=== PATIENT | male | born 1985 | race Caucasian/White ===

== ENCOUNTER 2023-03-19 05:05 | Inpatient (IN) | payer OTHER ==
[~2023-03-19] VITALS: Ht 193 cm; Wt 79.0 kg
[2023-03-19] MEDS ORDERED: ISOVUE-370 76% 100ML VIAL As Ordered ONE (05:19)
[2023-03-19] MEDS ORDERED: ONDANSETRON 4MG 2ML VIAL IV ONE (05:20)
[2023-03-19] MEDS ORDERED: NS 1,000 ML IV ONE (05:20)
[2023-03-19] MEDS: MORPHINE 4 MG/ML 1ML VIAL IV PRN ×4 (05:24→15:00)
[2023-03-19 05:28] LABS: VENOUS BASE EXCESS -0.1 (-2.0-2.0); VENOUS HCO3 23.9 MMOL/L (23.0-27.0); VENOUS O2 SATURATION 75.1 % (60.0-80.0); VENOUS PARTIAL PRESSURE CO2 37.4 mmHg (38.0-50.0); VENOUS PARTIAL PRESSURE O2 40.4 mmHg (30.0-50.0); VENOUS PH 7.424 UNITS (7.330-7.430); VENOUS STANDARD HCO3 23.8 MMOL/L; VENOUS TOTAL CO2 25.1 MMOL/L (24.0-28.0)
[2023-03-19 05:40] LABS: BASO # 0.1 10^3/uL (0.0-0.2); BASO % 0.5 % (0.0-1.0); EOS # 0.1 10^3/uL (0.0-0.5); EOS % 0.3 % (0.0-3.0); HEMATOCRIT 41.6 % (42.0-52.0); HEMOGLOBIN 14.6 g/dl (13.5-17.5); LYMPH # 1.3 10^3/uL (1.5-5.0); LYMPH % 7.6 % (24.0-44.0); MEAN CORPUSCULAR HGB CONC 35.1 g/dl (32.0-36.5); MEAN CORPUSCULAR VOLUME 94.1 fl (80.0-96.0); MONO % 5.8 % (2.0-8.0); NEUTROPHILS # 14.2 10^3/uL (1.5-8.5); NEUTROPHILS % 85.4 % (36.0-66.0); PLATELET COUNT, AUTOMATED 231 10^3/uL (150-450); RED BLOOD COUNT 4.42 10^6/uL (4.30-6.10); WHITE BLOOD COUNT 16.6 10^3/uL (4.0-10.0)
[2023-03-19 05:51] LABS: INR 0.93; PROTHROMBIN TIME 12.7 SECONDS (12.5-14.5)
[2023-03-19 05:52] LABS: PARTIAL THROMBOPLASTIN TIME 25.8 SECONDS (24.8-34.2)
[2023-03-19 05:56] LABS: ETHYL ALCOHOL (ETHANOL) 0.184 % (0.000-0.010); LIPASE 25 U/L (12-53)
[2023-03-19 05:57] LABS: AMYLASE 51 U/L (30-118)
[2023-03-19 05:58] LABS: ALBUMIN 4.2 G/DL (3.2-5.2); ALKALINE PHOSPHATASE 60 U/L (46-116); ALT/SGPT 42 U/L (7.0-40); AST/SGOT 60 U/L (<34); BILIRUBIN,DIRECT 0.2 MG/DL (<0.4); BILIRUBIN,TOTAL 0.7 MG/DL (0.3-1.2); BLOOD UREA NITROGEN 9 MG/DL (9-23); CALCIUM LEVEL 10.4 MG/DL (8.5-10.1); CARBON DIOXIDE LEVEL 25 MMOL/L (20-31); CHLORIDE LEVEL 106 MMOL/L (98-107); CK-MB VALUE MASS 4.7 NG/ML (<3.6); CPK CREATINE PHOSPHOKINASE 548 U/L (46-171); GLOMERULAR FILTRATION RATE > 60.0 (>60); GLUCOSE, FASTING 93 MG/DL (60-100); MB/CK RELATIVE INDEX 0.85 (< OR =4); POTASSIUM SERUM 3.9 MMOL/L (3.5-5.1); SODIUM LEVEL 140 MMOL/L (136-145); TOTAL PROTEIN 7.5 G/DL (5.7-8.2)
[2023-03-19] MEDS ORDERED: NS 1,000 ML IV SCH (09:05)
[2023-03-19] MEDS ORDERED: fentaNYL 100 MCG/2 ML INJECTION IV ONE (09:10)
[2023-03-19] MEDS: propofoL 200 MG/20 ML VIAL IV.PROC PRN ×2 (09:23→09:24)
[2023-03-19] MEDS ORDERED: MED REC IN PROGRESS XX SCH (09:55)
[2023-03-19] MEDS ORDERED: PERCOCET 5MG/325MG TAB PO PRN ×2 (10:00)
[2023-03-19] MEDS ORDERED: MOM 30ML SUSPENSION UDC PO PRN (10:05)
[2023-03-19] MEDS ORDERED: SENOKOT S TAB PO PRN (10:05)
[2023-03-19] MEDS ORDERED: ACETAMINOPHEN TAB 650MG DOSE (2X325MG) PO PRN (10:05)
[2023-03-19] MEDS ORDERED: LORazepam 2 MG TAB PO PRN (10:45)
[2023-03-19] MEDS ORDERED: NALOXONE INJ 0.4MG/1ML VIAL IV PRN (10:45)
[2023-03-19] MEDS ORDERED: PERCOCET 5MG/325MG TAB PO ONE (10:45)
[2023-03-19] MEDS ORDERED: OXAZEPAM 15MG CAP PO ONE (10:45)
[2023-03-19 11:45] VITALS: BP 142/93
[2023-03-19 11:47] VITALS: BP 136/85; TEMP 98.2; O2SAT 100
[2023-03-19] MEDS: THIAMINE 100 MG TAB PO SCH ×2 (12:11→22:16)
[2023-03-19] MEDS: KETOROLAC 30 MG/ML 1ML VIAL IV SCH ×3 (12:11→22:17)
[2023-03-19] MEDS: MULTIVITAMINS/MINERALS THERAP 1 TAB PO SCH (12:12)
[2023-03-19] MEDS: FOLIC ACID 1MG TAB PO SCH (12:12)
[2023-03-19] MEDS: NS 1,000 ML IV SCH ×2 (12:13→19:48)
[2023-03-19 14:00] VITALS: BP 130/75; TEMP 97.3; O2SAT 97
[2023-03-19] MEDS ORDERED: HOME MED LIST COMPLETE! XX SCH (14:40)
[2023-03-19] MEDS: ENOXAPARIN 40MG/0.4ML SYRINGE (J1650 PER 10MG) SC SCH (15:01)
[2023-03-19] MEDS: PERCOCET 5MG/325MG TAB PO SCH (17:13)
[2023-03-19 20:00] VITALS: BP 133/79; TEMP 99; O2SAT 96
[2023-03-20] MEDS ORDERED: UNRESOLVED CLARIFICATION ENTRY XX SCH (00:01)
[2023-03-20] MEDS: PERCOCET 5MG/325MG TAB PO SCH ×4 (00:28→18:47)
[2023-03-20 06:00] VITALS: BP 127/79; TEMP 99; O2SAT 96
[2023-03-20] MEDS: NS 1,000 ML IV SCH ×2 (06:19→17:15)
[2023-03-20] MEDS: KETOROLAC 30 MG/ML 1ML VIAL IV SCH ×4 (06:23→21:50)
[2023-03-20] MEDS: THIAMINE 100 MG TAB PO SCH ×2 (08:10→21:49)
[2023-03-20] MEDS: MULTIVITAMINS/MINERALS THERAP 1 TAB PO SCH (08:10)
[2023-03-20] MEDS: FOLIC ACID 1MG TAB PO SCH (08:10)
[2023-03-20] MEDS: ENOXAPARIN 40MG/0.4ML SYRINGE (J1650 PER 10MG) SC SCH (08:11)
[2023-03-20] MEDS ORDERED: PERC5TAB12 PO (10:31)
[2023-03-20] MEDS ORDERED: SENN-52 PO (10:31)
[2023-03-20 11:30] LABS: BASO % 0.8 % (0.0-1.0); EOS # 0.1 10^3/uL (0.0-0.5); EOS % 2.8 % (0.0-3.0); HEMATOCRIT 33.9 % (42.0-52.0); HEMOGLOBIN 11.8 g/dl (13.5-17.5); LYMPH # 0.8 10^3/uL (1.5-5.0); LYMPH % 16.3 % (24.0-44.0); MEAN CORPUSCULAR HEMOGLOBIN 33.6 pg (27.0-33.0); MEAN CORPUSCULAR HGB CONC 34.8 g/dl (32.0-36.5); MEAN CORPUSCULAR VOLUME 96.6 fl (80.0-96.0); MONO # 0.5 10^3/uL (0.0-0.8); NEUTROPHILS # 3.5 10^3/uL (1.5-8.5); NEUTROPHILS % 70.7 % (36.0-66.0); PLATELET COUNT, AUTOMATED 133 10^3/uL (150-450); RED BLOOD COUNT 3.51 10^6/uL (4.30-6.10)
[2023-03-20 12:14] LABS: PROCALCITONIN 0.29 ng/ml
[2023-03-20 12:21] LABS: HEPATITIS B SURFACE ANTIGEN NEGATIVE (NEGATIVE)
[2023-03-20 12:23] LABS: ALBUMIN 3.2 G/DL (3.2-5.2); ALKALINE PHOSPHATASE 48 U/L (46-116); ALT/SGPT 33 U/L (7.0-40); AST/SGOT 56 U/L (<34); BLOOD UREA NITROGEN 11 MG/DL (9-23); CARBON DIOXIDE LEVEL 28 MMOL/L (20-31); CHLORIDE LEVEL 105 MMOL/L (98-107); CREATININE FOR GFR 0.89 MG/DL (0.70-1.30); GLOMERULAR FILTRATION RATE > 60.0 (>60); GLUCOSE, FASTING 87 MG/DL (60-100); POTASSIUM SERUM 3.6 MMOL/L (3.5-5.1); SODIUM LEVEL 139 MMOL/L (136-145); TOTAL PROTEIN 5.9 G/DL (5.7-8.2)
[2023-03-20 12:42] LABS: HEPATITIS B CORE ANTIBODY IGM NEGATIVE (NEGATIVE); HEPATITIS C VIRUS ABY INDEX 0.08 INDEX (<0.8)
[2023-03-20 12:59] LABS: ERYTHROCYTE SEDIMENTATION RATE 2 mm/hr (0-15)
[2023-03-20 14:00] VITALS: BP 112/72; TEMP 99; O2SAT 96
[2023-03-20 20:00] VITALS: BP 141/79; TEMP 98.6; O2SAT 100
[2023-03-21] MEDS: PERCOCET 5MG/325MG TAB PO SCH ×3 (00:07→13:28)
[2023-03-21] MEDS: NS 1,000 ML IV SCH (02:05)
[2023-03-21] MEDS: KETOROLAC 30 MG/ML 1ML VIAL IV SCH ×2 (05:20→10:39)
[2023-03-21 06:00] VITALS: BP 125/88; TEMP 98.6; O2SAT 98
[2023-03-21] MEDS: FOLIC ACID 1MG TAB PO SCH (09:00)
[2023-03-21] MEDS: MULTIVITAMINS/MINERALS THERAP 1 TAB PO SCH (09:00)
[2023-03-21] MEDS: THIAMINE 100 MG TAB PO SCH (09:00)
[2023-03-21] MEDS: ENOXAPARIN 40MG/0.4ML SYRINGE (J1650 PER 10MG) SC SCH (09:01)
[2023-03-21] MEDS: MORPHINE 4 MG/ML 1ML VIAL IV PRN (09:52)
[2023-03-21 14:10] LABS: ANTINUCLEAR ANTIBODIES DIRECT Negative (Negative)
== END 2023-03-21 13:35 | disposition home or self-care (01) | DRG 342 ==
LOC: EDBD 05:05 → M ED 05:05 → M ED INP 09:58 → ENRESERV 10:12 → M MSPAV 11:32
PROVIDERS: ADMIT General Practice; ATTEND General Practice
PROC: 0RSLXZZ Reposition Right Elbow Joint, External Approach (ICD-10-PCS; principal; 2023-03-19)
PROC: 2W3MX1Z Immobilization of Left Lower Extremity using Splint (ICD-10-PCS; 2023-03-19)
PROC: 0HDKXZZ Extraction of Right Lower Leg Skin, External Approach (ICD-10-PCS; 2023-03-19)
DX: S92.002A Unspecified fracture of left calcaneus, initial encounter for closed fracture (principal); E87.20 Acidosis, unspecified; S82.091A Other fracture of right patella, initial encounter for closed fracture; J43.9 Emphysema, unspecified; D72.829 Elevated white blood cell count, unspecified; I10 Essential (primary) hypertension; E83.52 Hypercalcemia; S53.121A Posterior subluxation of right ulnohumeral joint, initial encounter; S80.211A Abrasion, right knee, initial encounter; W13.2XXA Fall from, out of or through roof, initial encounter; F10.129 Alcohol abuse with intoxication, unspecified; J98.11 Atelectasis; Y92.008 Other place in unspecified non-institutional (private) residence as the place of occurrence of the external cause

== ENCOUNTER → 2023-03-26 | Outpatient (CLI) | payer OTHER ==
[~2023-03-26] MED LIST: PERC5TAB12 PO; SENN-52 PO
== END ==
LOC: M SOG 08:10
PROVIDERS: ATTEND Physician Assistant
DX: S92.045A Nondisplaced other fracture of tuberosity of left calcaneus, initial encounter for closed fracture (principal); M25.521 Pain in right elbow; M79.672 Pain in left foot; M25.561 Pain in right knee; X58.XXXA Exposure to other specified factors, initial encounter; Y92.9 Unspecified place or not applicable

== ENCOUNTER → 2023-04-16 | Outpatient (CLI) | payer OTHER | LOC: M SOG 11:45 | PROVIDERS: ATTEND Physician Assistant | DX: S53.124A Posterior dislocation of right ulnohumeral joint, initial encounter (principal); S82.001A Unspecified fracture of right patella, initial encounter for closed fracture; S92.002A Unspecified fracture of left calcaneus, initial encounter for closed fracture; M25.421 Effusion, right elbow; Y93.9 Activity, unspecified; Y92.9 Unspecified place or not applicable ==